=== PATIENT | female | born 1955 | race Caucasian/White ===

== ENCOUNTER 2018-07-07 15:00 | Emergency (ER) | payer BC ==
[2018-07-07 15:19] VITALS: BP 174/83; PULSE 79; RESP 18; TEMP 98.5; O2SAT 99
[2018-07-07] MEDS ORDERED: Lidocaine 5% Patch TD STA (15:49)
[2018-07-07] MEDS ORDERED: Lidocaine 5% Patch TD SCH (16:00)
--- NOTE | 2018-07-07 16:36 | ED PDOC ---
Lower Extremity Pain/Injury Time Seen by Provider: 07/07/18 15:34 Chief Complaint (Nursing): Lower Extremity Problem/Injury Chief Complaint (Provider): Lower Extremity Problem History Per: Patient History/Exam Limitations: no limitations Onset/Duration Of Symptoms: Days (12x days) Current Symptoms Are (Timing): Still Present Severity: Moderate Additional Complaint(s): 62 year old female with a past medical history of hypertension presents to the ED for an evaluation of atraumatic right knee pain that started 12x days ago. Patient reports that the pain worsened today and that the pain worsens with movement. Patient was evaluated for the same complaint by and was prescribed Mobic, which she has been taking with no relief of symptoms. Patient denies having fevers, trauma, calf pain, numbness, or tingling. PMD: Elliott Hager MD Past Medical History Reviewed: Historical Data, Nursing Documentation, Vital Signs Vital Signs: Last Vital Signs Temp 98.5 F 07/07/18 15:18 Pulse 79 07/07/18 15:18 Resp 18 07/07/18 15:18 BP 174/83 H 07/07/18 15:18 Pulse Ox 99 07/07/18 15:18 SVETA Report Viewed: Yes - Medical History PMH: HTN - Family History Family History: States: No Known Family Hx - Social History Current smoker - smoking cessation education provided: No Alcohol: None Drugs: Denies - Home Medications Home Medications: Ambulatory Orders Medication Instructions Recorded RX: Diclofenac Sodium [Voltaren] 50 mg PO BID PRN #10 ect 07/07/18 RX: Diclofenac Sodium [Voltaren] 100 gm TP DAILY PRN #1 bottle 07/07/18 - Allergies Allergies/Adverse Reactions: Allergies Allergy/AdvReac Type Severity Reaction Status Date / Time No Known Allergies Allergy Verified 07/07/18 15:17 Review of Systems ROS Statement: Except As Marked, All Systems Reviewed And Found Negative Constitutional: Negative for: Fever Musculoskeletal: Positive for: Other (right knee pain. (-) calf pain) Skin: Negative for: Rash Neurological: Negative for: Numbness ((-) tingling) Physical Exam - Reviewed Nursing Documentation Reviewed: Yes Vital Signs Reviewed: Yes - Physical Exam Appears: Positive for: Well, Non-toxic, No Acute Distress Head Exam: Positive for: ATRAUMATIC, NORMOCEPHALIC Skin: Positive for: Normal Color, Warm, Dry Pulses-Dorsalis Pedis (L): 2+ Pulses-Dorsalis Pedis (R): 2+ Extremity: Positive for: Normal ROM (full ROM actively of right knee with pain), Tenderness (mild tenderness and swelling of the right knee.), Other (right knee: (-) erythema, (-) break in skin integrity, (-) lesions. (+) crepitus). Negative for: Deformity (of right knee) Neurologic/Psych: Positive for: Alert, Oriented (3x) - ECG O2 Sat by Pulse Oximetry: 99 (RA) Pulse Ox Interpretation: Normal - Radiology X-Ray: Interpreted by Me (Knee x-ray) X-Ray Interpretation: Other (DJD; nothing acute) Medical Decision Making Medical Decision Makin:34 Initial impression: 62 year old female with atraumatic knee pain Initial plan: * XRay knee 3 views * lidoderm * toradol 30 mg IM * reevaluation Scribe Attestation: Documented byPatricia Oliva, acting as a scribe for Yony Cr Provider Scribe Attestation: All medical record entries made by the Scribe were at my direction and personally dictated by me. I have reviewed the chart and agree that the record accurately reflects my personal performance of the history, physical exam, medical decision making, and the department course for this patient. I have also personally directed, reviewed, and agree with the discharge instructions and disposition. Disposition - Clinical Impression Clinical Impression: Knee pain - Patient ED Disposition Is Patient to be Admitted: No - Disposition Referrals: [facility] [Outside] Trae Shelton III, MD [Staff Provider] - Disposition Time: 16:30 Condition: STABLE Additional Instructions: FOLLOW UP WITH DR. SHELTON (ORTHOPEDIST) OR PMD FOR FURTHER EVALUATION RETURN TO ED IMMEDIATELY IF SYMPTOMS WORSEN MINOR BARNARD, thank you for letting us take care of you today. Your provider was Nichole See MD and you were treated for RT KNEE PAIN. The emergency medical care you received today was directed at your acute symptoms. If you were prescribed any medication, please fill it and take as directed. It may take several days for your symptoms to resolve. Return to the Emergency Department if your symptoms worsen, do not improve, or if you have any other problems. Please contact your doctor or call one of the physicians/clinics you have been referred to that are listed on the Patient Visit Information form that is included in your discharge packet. Bring any paperwork you were given at discharge with you along with any medications you are taking to your follow up visit. Our treatment cannot replace ongoing medical care by a primary care provider outside of the emergency department. Thank you for allowing the [facility] team to be part of your care today. If you had an X-Ray or CT scan: A Radiologist will review the ED reading if any change in treatment is needed we will contact you. If you had a blood, urine, or wound culture: It will take several days for the results, if any change in treatment is needed we will contact you. If you had an STI test: It will take 48 hours for the results. Please call after 1 week if you have not heard back. Prescriptions: RX: Diclofenac Sodium [Voltaren] 100 gm TP DAILY PRN #1 bottle PRN Reason: pain RX: Diclofenac Sodium [Voltaren] 50 mg PO BID PRN #10 ect PRN Reason: Pain Instructions: Knee Pain (DC) Forms: [employer] (Korean) Print Language: ARMENIAN
--- NOTE | 2018-07-07 16:47 | RAD ---
Date of service: 07/07/2018 PROCEDURE: Right Knee Radiographs. HISTORY: pain COMPARISON: None. FINDINGS: BONES: No fracture. JOINTS: Minimal lateral and patellofemoral osteoarthritis. No articular erosions. No loss of joint space width. Minimal marginal hypertrophy about the lateral and patellofemoral joint spaces. JOINT EFFUSION: Small joint effusion. OTHER FINDINGS: None. IMPRESSION: Minimal lateral and patellofemoral osteoarthritis with small joint effusion. No acute fracture
== END 2018-07-07 16:35 | disposition home or self-care (01) ==
LOC: H.ER 15:00
DX: M25.561 Pain in right knee (principal)
CPT/HCPCS: 73562; 96372; 99283; J1885